=== PATIENT | male | born 1970 | race Caucasian/White ===

== ENCOUNTER → 2017-06-13 | Outpatient (CLI) | payer OTHER ==
--- NOTE | 2017-06-13 18:42 | DI ---
LUMBAR MYELOGRAM, 06/13/2017 2:08 PM: Clinical History: Lumbar radiculopathy. Previous Exam: 06/24/2016. A "time out" session verified the patient's name and date of . Informed signed consent was then obtained for this procedure. The patient was informed of benefits and risks, to include but not be li mited to: allergies to medications (skin preparation agents, local anesthetic, and contrast agent), i nfection, and "spinal" headaches. The lower back was prepped with ChloraPrep with Tint. 1% lidocaine without epinephrine was used for intradermal and subcutaneous local anesthesia. With fluoroscopy, a 2 2 gauge spinal needle introduced into the spinal canal in the midline over the L5 laminectomy defect with a single pass that revealed droplets of clear colorless CSF. 10 ml of Omipaque 300 was injected into the spinal canal with fluoroscopic monitoring. Spot films of the spine were obtained and the pat ient was transferred to the CT scan suite for the CT myelogram. Following the CT scan, the patient was observed in the department for approximately 1 hour. The selina nt was then discharged home with a funeral limousine driver and was instructed to minimize activity for the rest of the day. The patient was also instructed to push fluids for the remainder of the day and to sleep on an extra pillow with the head up if possible. The patient was advised to watch for signs of an infection (including but not limited to: redness, swelling, fever) or an unusually severe headache. The dawson t was instructed to either contact the x-ray department directly or to report to the Emergency Room i mmediately if problems arose. LUMBAR MYELOGRAM: The patient is status post L4 and L5 laminectomies with anterior and posterior bony fusions between L 3-4 and L5-S1. Posterior fusions are accomplished with metallic struts transfixed with pedicle screws between L3 and S1 as well as bone grafts. The anterior and posterior fusions are solid. There is no canal stenosis. There is an anterior extradural defect at L2-3 without nerve root sleeve amputations consistent with a bulging but not herniated disc. L3-4 shows no canal stenosis or evidence of nerve r oot sleeve amputations right. L4-5 has a left lateral extradural defect at the mid body of L4 without canal stenosis. 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 L5-S1 shows no canal stenosis or nerve root sleeve amputation. Readin. Status post L4 and L5 laminectomies with anterior and posterior fusions between L3-4 and L5-S1. T he anterior and the posterior fusions are solid. 2. There is a left-sided extradural defect at the level of the body of L4, but there is no canal christal nosis at L4-5. 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 3. There is a bulging but not herniated disc at L2-3. 4. L3-4 and L5-S1 show no canal stenosis and no evidence of nerve root sleeve amputations.
--- NOTE | 2017-06-14 18:11 | DI ---
CT LUMBAR SPINE SCAN WITH INTRATHECAL CONTRAST, 06/13/2017 2:07 PM : Clinical History: Lumbar radiculopathy. Previous Exam: 06/24/2016. Scans are obtained from the mid body of T-11 to S4. with intrathecal contrast. Sagittal and coronal reformatted images are generated. Curved coronal reformatted images and axial reformatted images angl ed through the disc spaces are also performed. The patient is status post L4 and L5 laminectomies with anterior and posterior fusions between L3-4 a nd L5-S1. The anterior fusions are solid. The posterior fusions are also solid and are accomplished w ith metallic struts transfixed with pedicle screws between L3 and S1 as well as bone grafts. The [place] ining lumbar disc spaces are normal in height. There are no fractures. Posterior alignment and remain ing posterior elements are normal. Pedicles are normal. The sacrum and SI joints are normal. The cord terminates at T12 in the conus medullaris is normal. The T11-12 through L1-2 disc spaces are normal. L2-3 has a circumferentially bulging but not herniated disc without canal or neural foramina l stenosis. The L3-4 and L4-5 disc spaces show no canal or neural foraminal stenosis. The nerve root sleeves at L3-4 are symmetric. At L4-5, there is minimal filling of the left L5 nerve root sleeve bef ore the left L5 nerve root passes through the lateral recess of L5, whereas the right L5 nerve root s leeve is opacified. No extradural defect anteriorly is identified at this level. There is no canal st enosis or neural foraminal stenosis at L5-S1 and both S1 nerve roots to fill completely but more so o n the right side than the left. READIN. Status post L4 and L5 laminectomies with anterior and posterior fusions between L3-4 and L5-S1. T he anterior and posterior fusions are solid. 2. There is no canal or neural foraminal stenosis at L3-4 through L5-S1. There is decreased filling of the left L5 nerve root sleeve compared to the right side just above the lateral recess of L5. No d efinite extradural lesion is identified at this level. The nerve root sleeves at L3-4 and L5-S1 do fi ll bilaterally. 3. There is a bulging but not herniated disc without canal or neural foraminal stenosis at L2-3 with normal disc spaces from T11-12 through L1-2.
== END ==
LOC: RAD 14:03
PROVIDERS: ATTEND Physician Assistant
DX: M54.16 Radiculopathy, lumbar region (principal); Z98.1 Arthrodesis status
CPT/HCPCS: 72132; 72265

== ENCOUNTER 2017-06-28 07:50 | Day surgery (SDC) | payer OTHER ==
[~2017-06-28 07:50] MED LIST: BUPivacaine Inj 0.25% PF - 10ml vial IV ONE; Iopamidol Inj 61% 50 ML VIAL INTRATHEC ONE; TRIAMCINOLONE ACETONIDE 40 MG/1 ML IAC ONE
--- NOTE | 2017-06-28 08:50 | GEN.OPNOTE ---
Facet Injection Procedure: Facet Injection with Local Anesthetic and Steriod Procedure Code - Neurosurgery: 20236 : L/S Spine Facet/Med, 1st Preoperative Diagnosis: Lumbar Spondylosis Postoperative Diagnosis: same -: Consent: Rationale for procedure, nature of procedure, possible risks and benefits were discussed with the patient. Risks including allergic reaction to medications, known effects of steroid medications including transient elevations in blood sugar with aggravation of pre-existing diabetes and remote risk of aseptic necrosis of the hip. Infection or bleeding with potential risk of neurologic injury with weakness, paralysis or were all reviewed with the patient who wished to proceed. Anesthesia, sedation: No intravenous access or sedation was used. Physiologic monitoring of pulse and oxygen saturation was utilized. Procedure: The patient was placed prone on the operating room table, prepped with Chloroprep and sterilely draped. The skin was anesthetized with 1% Buffered Xylocaine. Under fluoroscopic control a 22-gauge needle was advanced L23 facet joint on the right. Omnipaque was injected under real-time fluoroscopy demonstrating an facet arthrogram. Following this 1 ml of a mixture of kenalog(40mg/ml) and Ropivacaine was injected. AP and lateral images of the final needle placement was obtained. The same was done on the left. The needle was removed and the patient returned to the post procedure recovery room where they were monitored for any side effects. Pain assessment: Preprocedure pain []/10, post procedure pain []/10. Discharge instructions: Patient was given a pain log to be filled out and returned. A delayed response to the steroids of 2-5 days was discussed.
[2017-06-28 13:58] VITALS: RESP 16; TEMP 97.7
== END 2017-06-28 08:51 | disposition home or self-care (01) ==
LOC: SDSC 07:50
PROVIDERS: ATTEND Pain Medicine Interventional Pain Medicine
DX: M47.816 Spondylosis without myelopathy or radiculopathy, lumbar region (principal)
CPT/HCPCS: 64493; 76000; J3301; S0020